=== PATIENT | male | born 1955 | race Caucasian/White ===

== ENCOUNTER 2018-12-24 22:04 | Observation (INO) ==
--- NOTE | 2018-12-24 22:37 | ED ---
HPI General Chief Complaint: Chest Pain Stated Complaint: cp x friday Time Seen by Provider: 12/24/18 22:20 Source: patient Mode of arrival: ambulatory Limitations: no limitations History of Present Illness HPI narrative: 63-year-old male patient with history of CAD, status post CABG x5 , hypertension, presents to the ER today because he has had substernal chest pains Friday. He states is a constant, currently a 7 out of 10. He states it worsens with stress. He denies any nausea, vomiting, shortness of breath, or other symptoms. He had been seen at [facility] on Friday but had refused to stay at that time. He is here because is getting worse. Modifying Factors: None Associated Signs & Symptoms: Chest pains Risk Factors: Cardiac history Related Data Home Medications Medication Instructions Recorded Confirmed alprazolam [Xanax] 0.5 mg PO QID 12/24/18 12/24/18 amlodipine 5 mg PO DAILY 12/24/18 12/24/18 aspirin 81 mg PO DAILY 12/24/18 12/24/18 atorvastatin 80 mg PO DAILY 12/24/18 12/24/18 duloxetine [Cymbalta] 60 mg PO DAILY 12/24/18 12/24/18 gabapentin [Neurontin] 1,200 mg PO BID 12/24/18 12/24/18 magnesium 250 mg PO DAILY 12/24/18 12/24/18 metoprolol succinate 50 mg PO DAILY 12/24/18 12/24/18 oxycodone 10 mg PO Q4-6H PRN 12/24/18 12/24/18 Allergies Allergy/AdvReac Type Severity Reaction Status Date / Time niacin Allergy Hives Verified 12/24/18 22:26 Penicillins Allergy Hives Verified 12/24/18 22:26 zolpidem [From Ambien] Allergy Hives Verified 12/24/18 22:26 Review of Systems ROS: all other systems reviewed are negative PMFSH History History Provided By: Patient Medical History Medical History History of chronic pain (Acute) History of high cholesterol (Acute) History of neuropathy (Acute) CAD, multiple vessel (Acute) Surgical History Surgical History History of surgery on arm (Acute) Hx of appendectomy (Acute) Hx of cholecystectomy (Acute) Hx of fusion of cervical spine (Acute) S/P CABG x 5 (Acute) Social History Social History Substance History: No History of Abuse Second Hand Smoke Exposure: Yes Smoking Status: Current every day smoker Tobacco Type: Cigarettes How Often Do You Have a Drink Containing Alcohol: Monthly or less Recent Travel in [facility] within the Last 8 Weeks: No Recent Out of Country Travel within the Last 8 Weeks: No Exam Narrative Exam Narrative: GENERAL: Well-developed elderly male patient currently in moderate distress. Awake and oriented x3. SKIN: Focused skin assessment warm/dry. HEAD: Atraumatic. Normocephalic. EYES: Pupils equal and round. No scleral icterus. No injection or drainage. ENT: No nasal bleeding or discharge. Mucous membranes pink and moist. NECK: Trachea midline. No JVD. Supple. CARDIOVASCULAR: Regular rate and rhythm. No murmur appreciated. RESPIRATORY: No accessory muscle use. Clear to auscultation. Breath sounds equal bilaterally. GASTROINTESTINAL: Abdomen soft, non-tender, nondistended. Hepatic and splenic margins not palpable. MUSCULOSKELETAL: No obvious deformities. No clubbing. No cyanosis. No edema. NEUROLOGICAL: Awake and alert. No obvious cranial nerve deficits. Motor grossly within normal limits. Normal speech. PSYCHIATRIC: Appropriate mood and affect; insight and judgment normal. Course Initial Documented Vital Signs Temperature 98.4 F 12/24/18 22:08 Pulse Rate 79 12/24/18 22:08 Respiratory Rate 18 12/24/18 22:08 Blood Pressure 146/73 H 12/24/18 22:08 Pulse Oximetry 99 12/24/18 22:08 Last Documented Vital Signs Temperature 98.4 F 12/24/18 22:41 Pulse Rate 81 12/24/18 22:46 Respiratory Rate 18 12/24/18 22:41 Blood Pressure 140/78 12/24/18 22:41 Pulse Oximetry 98 12/24/18 22:46 Medical Decision Making [facility] Narrative Medical decision making narrative: Chest x-ray and lab work is fairly unremarkable. EKG is fairly unremarkable. Patient is given aspirin and nitroglycerin, and at this point my plan would be to admit the patient for further treatment. Case is discussed with Dr. Turpin for admission. Medical Screen Exam Complete: Yes Emergency Medical Condition: Yes Differential Diagnosis Differential Diagnosis: ACS versus dysrhythmias versus electrolyte abnormalities versus anxiety Lab Data Lab results reviewed: Yes I reviewed the patient's lab results. Result diagrams: 12/24/18 23:00 12/24/18 23:00 Lab Results 12/24/18 12/24/18 Range/Units 23:00 23:00 CBC w Diff Auto diff final WBC 8.4 (4.0-11.0) th/mm3 RBC 4.26 L (4.50-5.90) mil/mm3 Hgb 13.1 (13.0-17.0) gm/dL Hct 38.8 L (39.0-51.0) % MCV 91.1 (80.0-100.0) fL MCH 30.7 (27.0-34.0) pg MCHC 33.7 (32.0-36.0) % RDW 13.0 (11.6-17.2) % Plt Count 225 (150-450) th/mm3 MPV 7.8 (7.0-11.0) fL Neut % (Auto) 69.7 (16.0-70.0) % Lymph % (Auto) 18.5 (9.0-44.0) % Ashe % (Auto) 8.7 H (0.0-8.0) % Eos % (Auto) 2.5 (0.0-4.0) % Baso % (Auto) 0.6 (0.0-2.0) % Neut # (Auto) 5.8 (1.8-7.7) th/mm3 Lymph # (Auto) 1.6 (1.0-4.8) th/mm3 Ashe # (Auto) 0.7 (0.0-0.9) th/mm3 Eos # (Auto) 0.2 (0.0-0.4) th/mm3 Baso # (Auto) 0.1 (0.0-0.2) th/mm3 WBC Differential . Differential Comment . Sodium 138 (136-145) meq/L Potassium 4.0 (3.5-5.1) meq/L Chloride 105 (98-107) meq/L Carbon Dioxide 27.8 (21.0-32.0) meq/L Anion Gap 5 (5-15) meq/L BUN 14 (7-18) mg/dL Creatinine 1.20 (0.60-1.30) mg/dL Estimated GFR 62 L (>89) mL/min Random Glucose 100 (74-106) mg/dL Calcium 8.9 (8.5-10.1) mg/dL Total Bilirubin 0.4 (0.2-1.0) mg/dL AST 28 (15-37) U/L ALT 29 (12-78) U/L Alkaline Phosphatase 84 (45-117) U/L Troponin I Less than 0.02 L (0.02-0.05) ng/mL Total Protein 6.9 (6.4-8.2) g/dL Albumin 3.7 (3.4-5.0) g/dL Imaging Data Attestation: I personally reviewed and interpreted this imaging study as follows : Radiologist's impression: Chest X-Ray 12/24/18 22:34 CONCLUSION: The lungs are clear. ECG Data Attestation: I personally reviewed and interpreted this ECG as follows: Interpretation: EKG shows NSR, no ST elevation or depression, and no arrhythmias. No significant T-wave inversions. Discharge Plan Discharge Order Discharge Orders: ED Use Only Admit Order (Routine); Ordered 12/24/18 Ordered By: Barry Omalley Discharge Details Anticipated Discharge Date: 12/24/18 Physicians Team ED Provider: Barry Omalley Primary Care Provider: García Kate Rxs /Orders / Referrals /Forms Prescriptions: No Action atorvastatin 80 mg Tablet 80 mg PO DAILY RF: 0 metoprolol succinate 50 mg Tablet Extended Release 24 Hr 50 mg PO DAILY RF: 0 amlodipine 5 mg Tablet 5 mg PO DAILY RF: 0 alprazolam [Xanax] 0.5 mg Tablet 0.5 mg PO QID RF: 0 gabapentin [Neurontin] 800 mg Tablet 1,200 mg PO BID RF: 0 aspirin 81 mg Tablet,Chewable 81 mg PO DAILY RF: 0 magnesium 250 mg Tablet 250 mg PO DAILY RF: 0 duloxetine [Cymbalta] 60 mg Capsule,Delayed Release(Dr/Ec) 60 mg PO DAILY RF: 0 oxycodone 10 mg Tablet 10 mg PO Q4-6H PRN (Reason: Acute Pain) RF: 0 Discharge Interventions Interventions: Vital Signs Last Done: 12/24/18 22:08 Status ED Status: With Doctor
[2018-12-24 23:12] LABS: Baso # (Auto) 0.1 th/mm3 (0.0-0.2); Baso % (Auto) 0.6 % (0.0-2.0); Eos # (Auto) 0.2 th/mm3 (0.0-0.4); Eos % (Auto) 2.5 % (0.0-4.0); Hematocrit 38.8 % (39.0-51.0); Hemoglobin 13.1 gm/dL (13.0-17.0); Lymph # (Auto) 1.6 th/mm3 (1.0-4.8); Lymph % (Auto) 18.5 % (9.0-44.0); Mean Corpuscular HGB Conc 33.7 % (32.0-36.0); Mean Corpuscular Hemoglobin 30.7 pg (27.0-34.0); Mean Corpuscular Volume 91.1 fL (80.0-100.0); Mean Platelet Volume 7.8 fL (7.0-11.0); Mono # (Auto) 0.7 th/mm3 (0.0-0.9); Mono % (Auto) 8.7 % (0.0-8.0); Neut # (Auto) 5.8 th/mm3 (1.8-7.7); Neut % (Auto) 69.7 % (16.0-70.0); Platelet Count 225 th/mm3 (150-450); Red Blood Count 4.26 mil/mm3 (4.50-5.90); White Blood Count 8.4 th/mm3 (4.0-11.0)
[2018-12-24 23:25] LABS: Chloride 105 meq/L (98-107); Sodium 138 meq/L (136-145)
[2018-12-24 23:28] LABS: Albumin 3.7 g/dL (3.4-5.0); Anion Gap 5 meq/L (5-15); Blood Urea Nitrogen 14 mg/dL (7-18); Calcium 8.9 mg/dL (8.5-10.1); Carbon Dioxide 27.8 meq/L (21.0-32.0); Glucose,Random 100 mg/dL (74-106)
--- NOTE | 2018-12-24 23:29 | XR ---
EXAM DATE: 12/24/2018 11:00 PM EST AGE/SEX: 63 years / Male INDICATIONS: Chest pain. CLINICAL DATA: This is the patient's initial encounter. Patient reports that signs and symptoms have been present for 4 - 6 days and indicates a pain score of 4/10. MEDICAL/SURGICAL HISTORY: . Neuropathy. CAD. High cholesterol. Appendectomy. CABG. Cholecys tectomy. Cervical fusion. COMPARISON: No prior exams available for comparison. FINDINGS: A single AP view of the chest demonstrates the lungs to be symmetrically aerated without evidence of mass, infiltrate or effusion. The cardiomediastinal contours are unremarkable. Osseous structures a re intact. Median sternotomy wires. Cervical spinal fusion plate. CONCLUSION: The lungs are clear. Electronically signed by: Rodrigo Banks MD Board Certified Radiologist 12/24/2018 11:28 PM EST
[2018-12-24 23:31] LABS: Alanine Aminotransferase 29 U/L (12-78)
[2018-12-24 23:32] LABS: Aspartate Aminotransferase 28 U/L (15-37); Glomerular Filtration Rate 62 mL/min (>89)
[2018-12-24 23:33] LABS: Total Protein 6.9 g/dL (6.4-8.2)
[2018-12-24 23:34] LABS: Alkaline Phosphatase 84 U/L (45-117)
[2018-12-25] MEDS ORDERED: Acetaminophen 500 MG Tablet PO PRN (01:17)
[2018-12-25] MEDS ORDERED: Heparin - SQ 10,000 UNITS/ML Vial SQ SCH (01:30)
--- NOTE | 2018-12-25 01:33 | P.EN ---
Eforcse queried: Oxycodone 10 mg # 225, 30 day supply last filled 12/02/18; Alprazolam 1 mg #60, 30 day supply last filled 12/08/18 .
[2018-12-25] MEDS: KCL 20 mEq/D5W/NaCl 0.45% Inj 1,000 ML IV.CONT SCH ×2 (01:47→12:59)
[2018-12-25] MEDS: ALPRAZolam 0.5 MG Tablet PO PRN ×2 (01:50→08:43)
[2018-12-25] MEDS: Gabapentin 400 MG Capsule PO SCH ×2 (01:56→08:34)
[2018-12-25 02:48] LABS: Creatine Kinase 130 U/L (39-308)
[2018-12-25] MEDS ORDERED: Morphine Inj 4 MG/ML Vial IV.PUSH PRN (04:40)
[2018-12-25 06:36] LABS: Creatine Kinase 119 U/L (39-308)
--- NOTE | 2018-12-25 06:48 | ECG ---
Date Performed: 12/25/2018 Time Performed: 04:49:25 PTAGE: 63 years EKG: Sinus rhythm NORMAL ECG PREVIOUS TRACING : 12/25/2018 01.58 No significant change from previous tracing noted. DOCTOR: Holden Merrill Interpretating Date/Time 12/25/2018 06:47:48
--- NOTE | 2018-12-25 06:48 | ECG ---
Date Performed: 12/25/2018 Time Performed: 01:58:26 PTAGE: 63 years EKG: Sinus rhythm NORMAL ECG PREVIOUS TRACING : 12/24/2018 22.45 No significant change from previous tracing noted. DOCTOR: Holden Merrill Interpretating Date/Time 12/25/2018 06:48:01
--- NOTE | 2018-12-25 06:49 | ECG ---
Date Performed: 12/24/2018 Time Performed: 22:45:30 PTAGE: 63 years EKG: Sinus rhythm NORMAL ECG NO PREVIOUS TRACING DOCTOR: Holden Merrill Interpretating Date/Time 12/25/2018 06:48:23
--- NOTE | 2018-12-25 08:13 | P.HPIM ---
History of Present Illness Primary Care Physician: García Kate Chief Complaint: Chest pain History of Present Illness: 83-year-old male patient with a known medical history of CAD status post CABG x5, hypertension and hyperlipidemia presented to the ED with complaints of chest pain. Patient states the chest pain started on Friday, has been consistent and pressure-like in nature, rates the pain a 7 out of 10 at its worst on pain scale. Patient states that the pain radiates down his left arm and the pain is associated with shortness of breath, nausea and diaphoresis. She states that the pain is worse with activity and denies any known alleviating factors. Patient follows with a engineering equipment operator at [facility], his last stress test was over a year ago as well as a cardiac cath. He does admit to smoking 2 packs/day of cigarettes. Denies any alcohol or drug use. His mother had a pacemaker placed. Patient denies any new changes to his medications. He does state that he follows with pain management and takes oxycodone daily for chronic back pain as well as pain to his upper extremities secondary to trauma/injury. Patient underwent a CABG back in 1998. Denies any recent fevers, chills, headache, abdominal pain, vomiting, diarrhea or dysuria. Denies any antibiotic use. Review of Systems Review of Systems: all other systems reviewed are negative [facility] Medical History Medical History History of chronic pain (Acute) History of high cholesterol (Acute) History of neuropathy (Acute) CAD, multiple vessel (Acute) Surgical History Surgical History History of surgery on arm (Acute) Hx of appendectomy (Acute) Hx of cholecystectomy (Acute) Hx of fusion of cervical spine (Acute) S/P CABG x 5 (Acute) Family History Family History Other Cardiovascular disease Social History Social History Substance History: No History of Abuse Second Hand Smoke Exposure: No Smoking Status: Current every day smoker Tobacco Type: Cigarettes How Often Do You Have a Drink Containing Alcohol: Monthly or less Recent Travel in [place] within the Last 8 Weeks: No Recent Out of Country Travel within the Last 8 Weeks: No Immunization History Tetanus Immunization: <5 Years Medications and Allergies Allergies Allergy/AdvReac Type Severity Reaction Status Date / Time niacin Allergy Hives Verified 12/24/18 22:26 Penicillins Allergy Hives Verified 12/24/18 22:26 zolpidem [From Ambien] Allergy Hives Verified 12/24/18 22:26 Home Medications Medication Instructions Recorded Confirmed Type alprazolam [Xanax] 0.5 mg PO QID 12/24/18 12/24/18 History amlodipine 5 mg PO DAILY 12/24/18 12/24/18 History aspirin 81 mg PO DAILY 12/24/18 12/24/18 History atorvastatin 80 mg PO DAILY 12/24/18 12/24/18 History duloxetine [Cymbalta] 60 mg PO DAILY 12/24/18 12/24/18 History gabapentin [Neurontin] 1,200 mg PO BID 12/24/18 12/24/18 History magnesium 250 mg PO DAILY 12/24/18 12/24/18 History metoprolol succinate 50 mg PO DAILY 12/24/18 12/24/18 History oxycodone 15 mg PO 5 TIMES A DAY 12/24/18 12/25/18 History Active Medications: Active Medications Acetaminophen (Tylenol) 500 mg PO Q4H PRN PRN Reason: HEADACHE Alprazolam (Xanax) 0.5 mg PO QID PRN PRN Reason: ANXIETY Last Admin: 12/25/18 01:50 Dose: 0.5 mg Amlodipine Besylate (Norvasc) 5 mg PO DAILY [facility] Aspirin (Aspirin) 325 mg PO DAILY [facility] Atorvastatin Calcium (Lipitor) 80 mg PO DAILY [facility] Duloxetine HCl (Cymbalta) 60 mg PO DAILY [facility] Famotidine (Pepcid) 20 mg PO BID [facility] Gabapentin (Neurontin) 1,200 mg PO BID [facility] Last Admin: 12/25/18 01:56 Dose: 1,200 mg Heparin Sodium (Porcine) (Heparin Inj) 5,000 units SQ Q12H [facility] Last Admin: 12/25/18 01:50 Dose: 5,000 units Potassium Chloride/Dextrose/Sod Cl (D5w/1/2ns + Kcl 20 Meq Inj) 1,000 mls @ 100 mls/hr IV.CONT .Q10H [facility] Last Admin: 12/25/18 01:47 Dose: Not Given Magnesium Oxide (Mag-Ox) 400 mg PO DAILY [facility] Metoprolol Succinate (Toprol Xl) 50 mg PO DAILY [facility] Morphine Sulfate (Morphine Inj) 2 mg IV.PUSH Q3H PRN PRN Reason: chest pain unrelieved by nitro Last Admin: 12/25/18 05:07 Dose: 2 mg Nitroglycerin (Nitrostat Sl) 0.4 mg SL Q5M PRN PRN Reason: CHEST PAIN Last Admin: 12/25/18 04:42 Dose: 0.4 mg Ondansetron HCl (Zofran Inj) 4 mg IV.PUSH Q6H PRN PRN Reason: NAUSEA Oxycodone HCl (Roxicodone) 15 mg PO 5 TIMES A DAY PRN PRN Reason: pain Last Admin: 12/25/18 07:25 Dose: 15 mg Sodium Chloride (Ns Flush) 2 ml IV.FLUSH BID VASHTI Sodium Chloride (Ns Flush) 2 ml IV.FLUSH PRN PRN PRN Reason: FLUSH AFTER USING IV ACCESS Physical Exam Vital signs: Vital Signs 12/24/18 22:08 12/24/18 22:41 12/24/18 22:46 Temperature 98.4 F 98.4 F Pulse Rate 79 81 81 Respiratory Rate 18 18 Blood Pressure 146/73 H 140/78 Pulse Oximetry 99 98 98 12/25/18 00:22 12/25/18 00:44 12/25/18 00:54 Temperature 97.9 F Pulse Rate 77 64 63 Respiratory Rate 18 20 Blood Pressure 138/78 124/74 Pulse Oximetry 98 97 12/25/18 04:00 12/25/18 04:01 Temperature 97.6 F Pulse Rate 67 63 Respiratory Rate 21 Blood Pressure 122/71 Pulse Oximetry 97 Intake & Output 12/24/18 12/25/18 12/25/18 18:59 06:59 18:59 Weight 79.1 kg Other: Date of Last Bowel Movement 12/24/18 Weight On Admission 78.2 kg Narrative: GENERAL: Well-developed, well-nourished patient in [facility]. SKIN: Warm and dry. No rash. HEAD: Normocephalic. Atraumatic. EYES: Pupils equal and round. No scleral icterus. No injection or drainage. ENT: No nasal bleeding or discharge. Mucous membranes pink and moist. NECK: Supple. Trachea midline. CARDIOVASCULAR: Regular rate and rhythm. S1, S2 noted. No murmur appreciated. Mild chest pain to palpation, patient states that the pain is also deeper as well. RESPIRATORY: No accessory muscle use. Clear to auscultation. Breath sounds equal bilaterally. GASTROINTESTINAL: Abdomen soft, non-tender, nondistended. Normoactive bowel sounds x4. MUSCULOSKELETAL: No obvious deformities. Extremities without clubbing, cyanosis , or edema. NEUROLOGICAL: Awake and alert. No obvious cranial nerve deficits. Motor grossly within normal limits. 5/5 muscle strength in bilateral upper and lower extremities. Normal speech. PSYCHIATRIC: Appropriate mood and affect; insight and judgment normal. Results Labs CBC & Chem 7: 12/24/18 23:00 12/24/18 23:00 Imaging Impressions Chest X-Ray 12/24/18 22:34 CONCLUSION: The lungs are clear. Caprini VTE Risk Assessment Caprini VTE Risk Assessment: Moderate/High Risk (score >= 2) Caprini Risk Assessment Model: Point Value = 1 Point Value = 2 Point Value = 3 Point Value = 5 Age 41-60 Minor surgery BMI > 25 kg/m2 Swollen legs Varicose veins or History of unexplained or recurrent spontaneous Oral contraceptives or hormone replacement Sepsis (< 1 month) Serious lung disease, including pneumonia (< 1 month) Abnormal pulmonary function Acute myocardial infarction Congestive heart failure (< 1 month) History of inflammatory bowel disease Medical patient at bed rest Age 61-74 Arthroscopic surgery Major open surgery (> 45 min) Laparoscopic surgery (> 45 min) Malignancy Confined to bed (> 72 hours) Immobilizing plaster cast Central venous access Age >= 75 History of VTE Family history of VTE Factor V Leiden Prothrombin [id number] Lupus anticoagulant Anticardiolipin antibodies Elevated serum homocysteine Heparin-induced thrombocytopenia Other congenital or acquired thrombophilia Stroke (< 1 month) Elective arthroplasty Hip, pelvis, or leg fracture Acute spinal cord injury (< 1 month) Prophylaxis Regimen: Total Risk Factor Score Risk Level Prophylaxis Regimen 0-1 Low Early ambulation 2 Moderate Order ONE of the following: *Sequential Compression Device (SCD) *Heparin 5000 units SQ BID 3-4 Higher Order ONE of the following medications: *Heparin 5000 units SQ TID *Enoxaparin/Lovenox 40 mg SQ daily (WT < 150 kg, CrCl > 30 mL/min) *Enoxaparin/Lovenox 30 mg SQ daily (WT < 150 kg, CrCl > 10-29 mL/min) *Enoxaparin/Lovenox 30 mg SQ BID (WT < 150 kg, CrCl > 30 mL/min) AND/OR *Sequential Compression Device (SCD) 5 or more Highest Order ONE of the following medications: *Heparin 5000 units SQ TID (Preferred with Epidurals) *Enoxaparin/Lovenox 40 mg SQ daily (WT < 150 kg, CrCl > 30 mL/min) *Enoxaparin/Lovenox 30 mg SQ daily (WT < 150 kg, CrCl > 10-29 mL/min) *Enoxaparin/Lovenox 30 mg SQ BID (WT < 150 kg, CrCl > 30 mL/min) AND *Sequential Compression Device (SCD) Assessment and Plan Plan This is a 63-year-old male patient with no medical history of hypertension, history of CAD and CABG x5 and hyperlipidemia presented to the ED with complaints of chest pain. Chest pain -Patient has been admitted the chest pain center for observation. Serial EKGs and serial troponins have been ordered for ruling out ACS purposes. Troponin trend flat. -EKG reviewed showing normal sinus rhythm with no ST changes to indicate any ischemia. -CBC and BMP reviewed, essentially unremarkable. -Patient continue on cardiac telemetry, monitor for any arrhythmias. None overnight. -Aspirin and nitroglycerin were given in ED. Nitroglycerin available as needed for chest pain. Continue aspirin daily. -Patient's risk factors include a history of CAD and status post CABG. ACS has been ruled out with serial EKGs and serial troponins. -Patient will undergo cardiac myocardial perfusion scan to further rule out any ischemia. Patient is unable to do a treadmill stress test due to chronic back pain and neuropathy. -Patient is stable at this time and agreeable to plan. -Further hospitalization and treatment plan will depend on nuclear imaging results. Hypertension -Continue blood pressure management and follow trends. Continue home medications. Hyperlipidemia -Continue home atorvastatin. Chronic back pain and upper extremity pain secondary to trauma/injury -E force database has been queried, will continue on oxycodone and Xanax from home. -Supportive care. DVT prophylaxis: SCDs. Heparin. Discussed with patient, patient's family, bedside RN and Dr. rivera H&P: Quality VTE Deep Vein Thrombosis/Pulmonary Embolism Present on Admission: No
[2018-12-25] MEDS ORDERED: Regadenoson Inj 0.4 MG/5 ML Syringe IV.PUSH ONE (08:28)
[2018-12-25] MEDS ORDERED: Magnesium Oxide 400 MG Tablet PO SCH (09:00)
[2018-12-25] MEDS ORDERED: Duloxetine 60 MG DR Capsule PO SCH (09:00)
[2018-12-25] MEDS ORDERED: Aspirin 325 MG Tablet PO SCH (09:00)
[2018-12-25] MEDS ORDERED: Famotidine 20 MG Tablet PO SCH (09:00)
[2018-12-25] MEDS ORDERED: Ketorolac Inj 30 MG/ML (IVP) Vial IV.PUSH ONE (09:00)
[2018-12-25] MEDS ORDERED: amLODIPine 5 MG Tablet PO SCH (09:00)
[2018-12-25 13:09] VITALS: BP 118/64; RESP 20; TEMP 97.7; O2SAT 96
[2018-12-25 14:26] VITALS: PULSE 65
--- NOTE | 2018-12-25 14:37 | NM ---
EXAM DATE: 12/25/2018 2:25 PM EST AGE/SEX: 63 years / Male INDICATIONS:Angina. . CLINICAL DATA: This is the patient's initial encounter. Patient reports that signs and symptoms have been present for 1 day and indicates a pain score of 7/10. MEDICAL/SURGICAL HISTORY: Hypercholesterolemia. Hypertension. CABG. Appendectomy. Cholecyste ctomy. COMPARISON: No prior exams available for comparison. DOSE: 8.7 mCi Tc 99m Myoview at rest 26.3 mCi [id number] at stress 0.4 mg Lexiscan STRESS SYMPTOMS: Chest tightness. EJECTION FRACTION: 43 % TECHNIQUE: The patient underwent pharmacologic stress with infusion of prescribed dose. Continuous ECG tracing was monitored during stress. Gated SPECT imaging was performed after stress and conventi onal SPECT imaging was performed at rest. The examination was performed on a SPECT/CT scanner, both attenuation and non-corrected datasets were reviewed. FINDINGS: Distribution: The maximum perfused segment at stress is in the anterolateral wall. Perfusion Study: The pattern of perfusion at stress is within normal limits. Gated Study: There is hypokinesis and septal wall could be seen with post CABG . The ejection fract ion is calculated at 43%. RISK CATEGORY: Low (<1% Annual Mortality Rate) CONCLUSION: 1. No appreciable ischemia. Electronically signed by: Donita Watson MD Board Certified Radiologist 12/25/2018 2:36 PM EST
--- NOTE | 2018-12-25 19:24 | TR ---
Date Performed: 12/25/2018 Time Performed: 13:41:07 DOCTOR: Emir Solano DRUG LIST: CLINICAL HISTORY: REASON FOR TEST: Chest pain REASON FOR ENDING: OBSERVATION: CONCLUSION: Lexiscan stress test was performed under standard four minute protocol. Radionuclide was injected one minute prior to ending the test. No electrocardiographic abormalities were present to suggest ischemia. Nuclear imaging and interpretation are pending. COMMENTS:
== END 2018-12-25 15:30 | disposition home or self-care (01) ==
LOC: PHEDA 22:04 → PHED 22:04 → PH3 12-25 00:41
PROVIDERS: ADMIT Hospitalist; ATTEND Hospitalist
DX: M79.602 Pain in left arm; F17.210 Nicotine dependence, cigarettes, uncomplicated; G62.9 Polyneuropathy, unspecified; Z79.82 Long term (current) use of aspirin; I10 Essential (primary) hypertension; E78.5 Hyperlipidemia, unspecified; R07.89 Other chest pain; I25.119 Atherosclerotic heart disease of native coronary artery with unspecified angina pectoris; G89.29 Other chronic pain; Z79.899 Other long term (current) drug therapy; Z95.1 Presence of aortocoronary bypass graft; R11.0 Nausea; R06.02 Shortness of breath; R61 Generalized hyperhidrosis
CPT/HCPCS: 71010; 71045; 78452; 80053; 82550; 84484; 85025; 93005; 93017; 96374; 96375; 99285; A9502; G0378; J1644; J1885; J2270; J2785; Q9969